=== PATIENT | female | born 1945 | race Caucasian/White ===

== ENCOUNTER 2018-09-03 09:04 | Emergency (ER) | payer OTHER ==
[2018-09-03 09:15] VITALS: TEMP 97.6; BMI 40.4
[2018-09-03] MEDS ORDERED: diphenhydrAMINE HCL 50 MG CAPSULE PO ONE (09:45)
[2018-09-03] MEDS ORDERED: FAMOTIDINE 20 MG TABLET PO ONE (09:45)
[2018-09-03 10:02] VITALS: BP 121/63; PULSE 110
--- NOTE | 2018-09-03 10:53 | PDOC ---
History of Present Illness - General Chief Complaint: Allergic Reaction Stated Complaint: allergic reaction Time Seen by Provider: 09/03/18 09:13 History Source: Patient Exam Limitations: No Limitations - History of Present Illness Initial Comments: 09/03/18 10:53 CHIEF COMPLAINT: Rash and itching since yesterday HISTORY OF PRESENT ILLNESS: Patient is a 73-year-old female with a history of diabetes and hypertension. She went to her primary care physician, Dr. Fadia Caban in [place] and evening, on August 18 for a general physical. The following week, Dr. Caban called her and told her she had a urinary tract infection. The patient had no symptoms of fever or dysuria. On 08/22, she was prescribed nitrofurantoin twice a day for one week. She took the nitrofurantoin from August 23 through the . 2 days later she started to develop redness of her skin on the arms and thighs as well as around the flanks. She awoke with severe itching. She took one dose of Benadryl but continues to have itching. Yesterday, she also had some transient lip swelling of her upper and lower lip. That has resolved. Her tongue felt a little bit dry, but she had been taking Benadryl. She did not have any tongue swelling. She did not have any difficulty swallowing or breathing. Patient now comes to the emergency department for ongoing symptoms of itching and redness of her skin, primarily on the arms, thighs, and the back. There is no lip or tongue swelling. There is no throat discomfort or swelling. There is no change in voice or swallowing. There is no dizziness or lightheadedness. There are no welts on the skin. The patient did have nausea times one last night. REVIEW OF SYSTEMS: GENERAL/CONSTITUTIONAL: No fever or chills. No weakness. No weight change. HEAD, EYES, EARS, NOSE AND THROAT: No change in vision. No ear pain or discharge. No sore throat. CARDIOVASCULAR: No chest pain or shortness of breath. RESPIRATORY: No cough, wheezing, or hemoptysis. GASTROINTESTINAL: + Positive nausea but no vomiting. No diarrhea or constipation. No rectal bleeding. GENITOURINARY: No dysuria, frequency, or change in urination. MUSCULOSKELETAL: No joint or muscle swelling or pain. No neck or back pain. SKIN AND BREASTS: + Positive generalized redness and itching of the skin, no hives. NEUROLOGIC: No headache, vertigo, loss of consciousness, or loss of sensation. PSYCHIATRIC: No depression or anxiety. ENDOCRINE: No increased thirst. No abnormal weight change. HEMATOLOGIC/LYMPHATIC: No anemia, easy bleeding, or history of blood clots. ALLERGIC/IMMUNOLOGIC: + Positive redness and itching to the skin as noted above. No latex allergy. Past History - Past Medical History Allergies/Adverse Reactions: Allergies Allergy/AdvReac Type Severity Reaction Status Date / Time No Known Allergies Allergy Verified 07/17/16 22:50 Home Medications: Ambulatory Orders Metformin HCl [Glucophage] 1,000 mg PO DAILY 07/17/16 Diphenhydramine HCl [Benadryl Capsule -] 25 mg PO Q6H 09/03/18 Ranitidine [Zantac -] 150 mg PO BID PRN #60 tablet 09/03/18 COPD: No Diabetes: Yes HTN: Yes - Suicide/Smoking/Psychosocial Hx Smoking History: Never smoked Have you smoked in the past 12 months: No Information on smoking cessation initiated: No Hx Alcohol Use: No Drug/Substance Use Hx: No Substance Use Type: None *Physical Exam - Vital Signs Last Vital Signs Temp Pulse Resp BP Pulse Ox 97.6 F 110 H 20 121/63 100 09/03/18 09:06 09/03/18 10:01 09/03/18 09:06 09/03/18 10:01 09/03/18 10:01 - Physical Exam Comments: 09/03/18 10:57 GENERAL: The patient is awake, alert, and fully oriented, in no acute distress. HEAD: Normal with no signs of trauma. EYES: Pupils equal, round and reactive to light, extraocular movements intact, sclera anicteric, conjunctiva clear. ENT: Ears normal, nares patent, oropharynx clear without exudates. No tongue swelling. No posterior pharyngeal swelling. Normal voice and swallowing. Moist mucous membranes. NECK: Normal range of motion, supple without lymphadenopathy, JVD, or masses. LUNGS: Breath sounds equal, clear to auscultation bilaterally. No wheezes, and no crackles. HEART: Regular rate and rhythm, normal S1 and S2 without murmur, rub or gallop. ABDOMEN: Soft, nontender, normoactive bowel sounds. No guarding, no rebound. No masses. EXTREMITIES: Normal range of motion, no edema. No clubbing or cyanosis. No cords, erythema, or tenderness. NEUROLOGICAL: Cranial nerves II through XII grossly intact. Normal speech, normal gait. PSYCH: Normal mood, normal affect. SKIN: There is erythema around the upper arms and thighs, but no hives. The patient is actively scratching at her skin due to itching. The lips are normal without swelling. The tongue is normal. The posterior pharynx is normal with no uvular edema. The patient's voice is normal. Heart Score/ECG Review - ECG Impressions Comment:: 09/03/18 11:02 Twelve-lead EKG shows sinus tachycardia at a rate of 103 bpm. The axis is normal. The intervals are normal. There is no acute ST elevation or depression. Impression: Sinus tachycardia at 103, otherwise normal EKG. ED Treatment Course - Medications Given in the ED: ED Medications Discontinued Medications Generic Name Dose Route Start Last Admin Trade Name Freq PRN Reason Stop Dose Admin Diphenhydramine HCl 25 mg 09/03/18 09:45 09/03/18 09:53 Benadryl - PO 09/03/18 09:46 25 mg ONCE ONE Administration Famotidine 20 mg 09/03/18 09:45 09/03/18 09:53 Pepcid - PO 09/03/18 09:46 20 mg ONCE ONE Administration Medical Decision Making - Medical Decision Making 09/03/18 10:59 Patient presents with itching of her skin. She has some redness but no hives. She reports that she had some lip swelling yesterday that resolved. The onset of skin rash shortly after finishing a course of nitrofurantoin suggest that this may be the cause of her ALLERGIC symptoms. However, Alvin inhibitors are also known to cause ALLERGIC reaction. She has been on Ramipril for 8 years, and there has never been a problem. However, she did have some lip swelling as part of this syndrome which makes ramipril a possible cause. On examination, the patient was noted to have no signs of swelling of the upper airway. No angioedema. She presented with mild tachycardia which resolved just from sitting quietly under observation in the ED. Patient has been advised to stop ramipril and to continue taking Benadryl 25 mg every 6 hours. She also takes when necessary ranitidine and she has some at home, she was told to take this twice a day until her ALLERGIC symptoms resolved , along with the Benadryl. I spoke with patient's primary physician Dr. Chen covering for Dr. Fadia Caban. They have advised stopping ramipril and not starting any other antihypertensive until the patient is seen this week in the office. Patient agrees to follow this plan. She is aware of danger signs of angioedema and states she'll return to the emergency room right away if lip, tongue, or throat swelling occurs. *DC/Admit/Observation/Transfer Diagnosis at time of Disposition: Allergic reaction Qualifiers: Encounter type: initial encounter Qualified Code(s): T78.40XA - Allergy, unspecified, initial encounter - Discharge Dispostion Disposition: HOME Condition at time of disposition: Stable Decision to Admit order: No - Prescriptions Prescriptions: Ranitidine [Zantac -] 150 mg PO BID PRN #60 tablet PRN Reason: allergy or acid reflux - Referrals Referrals: Fadia Thompson [Non Staff, Medical] - Call tomorrow - Patient Instructions Printed Discharge Instructions: DI for General Allergic Reactions Additional Instructions: Today you were evaluated for itching and rash on your skin as well as some swelling of your lips that occurred yesterday. The likely diagnosis is an ALLERGY to the nitrofurantoin medication that you recently completed. It is also possible that this could be caused by an ALLERGY to your blood pressure medication Ramipril. STOP TAKING NITROFURANTOIN AND RAMIPRIL. Continue your metformin. Take Benadryl 25 mg every 6 hours until the ALLERGY symptoms are completely resolved. Take your ranitidine twice daily as this can also help relieve the ALLERGY symptoms. I spoke with Dr. Lopez, covering for your Dr. Fadia Thompson, and it is recommended that you call their office tomorrow to schedule a follow-up appointment this week. They will check your blood pressure and see if you should go on another blood pressure medication. Return to the emergency department for any severe or progressive symptoms, in particular if you have tongue or lip swelling, return immediately to the closest emergency room. - Post Discharge Activity
--- NOTE | 2018-09-04 10:37 | EKG ---
Test Reason : Blood Pressure : / mmHG Vent. Rate : 103 BPM Atrial Rate : 103 BPM P-R Int : 142 ms QRS Dur : 076 ms QT Int : 338 ms P-R-T Axes : 049 -17 043 degrees QTc Int : 442 ms SINUS TACHYCARDIA OTHERWISE NORMAL ECG NO PREVIOUS ECGS AVAILABLE Confirmed by BHARGAV BAKER MD ([id number]) on 09/04/2018 10:37:03 AM Referred By: ALMITA PRASAD Confirmed By:BHARGAV BAKER MD
== END 2018-09-03 11:01 | disposition home or self-care (01) ==
LOC: FER 09:04
DX: T78.40XA Allergy, unspecified, initial encounter (principal); X58.XXXA Exposure to other specified factors, initial encounter; Y93.9 Activity, unspecified; Y92.9 Unspecified place or not applicable; I10 Essential (primary) hypertension; E11.9 Type 2 diabetes mellitus without complications; Z79.84 Long term (current) use of oral hypoglycemic drugs
CPT/HCPCS: 93005; 99282-25